=== PATIENT | male | born 1995 | race Caucasian/White ===

== ENCOUNTER 2017-09-15 19:49 | Emergency (ER) | payer OTHER ==
[~2017-09-15] VITALS: Ht 185.4 cm; Wt 81.5 kg
[2017-09-15 21:00] LABS: HEMATOCRIT 47.4 % (38.0-50.0); MCH 29.6 PG (29.0-34.0); MCHC 35.9 G/DL (30.0-36.0); MCV 82.6 FL (86-99); PLATELET COUNT 221 K/uL (156-360); RBC DIS.WIDTH-CV 11.5 % (11.8-14.6); RBC DIS.WIDTH-SD 34.5 % (39-53); RED BLOOD COUNT 5.74 M/uL (4.00-5.50); WHITE BLOOD COUNT 8.9 K/uL (4.1-10.2)
[2017-09-15 21:10] LABS: ALBUMIN 5.2 g/dL (3.2-4.8); CHLORIDE 103 mEq/L (99-109); POTASSIUM 4.5 mEq/L (3.7-5.4); SODIUM 136 mEq/L (136-147)
[2017-09-15 21:12] LABS: GLUCOSE 127 mg/dL (70-99); TOTAL PROTEIN 8.1 g/dL (6.4-8.3)
[2017-09-15 21:14] LABS: TOTAL BILIRUBIN 1.2 mg/dL (0.0-1.0)
[2017-09-15 21:16] LABS: ALKALINE PHOSPHATASE 47 IU/L (3-129); CREATININE 1.4 mg/dL (0.6-1.3)
[2017-09-15 21:17] LABS: UREA NITROGEN (BUN) 32 mg/dL (9-23)
[2017-09-15 21:18] LABS: AST (GOT) 18 IU/L (2-34)
[2017-09-15 21:19] LABS: ALT (GPT) 21 IU/L (3-49); LIPASE 10 U/L (1.0-51.0)
[2017-09-15 21:28] LABS: GFR ESTIMATE (CALCULATED) > 59 mL/min/ (58.99-99999)
[2017-09-15 22:06] LABS: APPEARANCE CLEAR ((CLEAR)); BILIRUBIN NEGATIVE; BLOOD NEGATIVE; COLOR YELLOW ((YELLOW)); GLUCOSE (STRIP) NEGATIVE; KETONES 5; LEUKOCYTES NEGATIVE; NITRITE NEGATIVE; PROTEIN (STRIP) 30; SPECIFIC GRAVITY 1.032 (1.000-1.030); UCUL ADDED? NO; UROBILINOGEN 0.2 MG/DL (0.2-1.0)
[2017-09-16] MEDS ORDERED: ZOFRAN4 MG PO (01:16)
[2017-09-16 01:18] LABS: C DIFF TOXIN NEGATIVE (NEGATIVE)
[2017-09-16 02:05] VITALS: BP 110/68
== END 2017-09-16 02:06 | disposition home or self-care (01) ==
LOC: EME 19:49
PROVIDERS: Emergency Medicine
DX: A08.4 Viral intestinal infection, unspecified (principal); N17.9 Acute kidney failure, unspecified; E86.0 Dehydration; I10 Essential (primary) hypertension
CPT/HCPCS: 74176; 80053; 81003; 83690; 85027; 87493; 99281; 99284; J1885; J2270; J2405; J7030